=== PATIENT | male | born 1980 | race Asian ===

== ENCOUNTER 2019-01-16 11:50 | Day surgery (SDC) | payer OTHER ==
[~2019-01-16] VITALS: Ht 165.1 cm; Wt 71.6 kg
[2019-01-16] MEDS ORDERED: OMEP20CA16 PO (13:18)
[2019-01-16 13:20] VITALS: Ht 165.1 cm; Wt 71.6 kg
[2019-01-16 13:22] VITALS: BP 107/68; PULSE 66; RESP 18
[2019-01-16] MEDS ORDERED: LIDOCAINE 4% SOLUTION 50 ML BTL ONE (13:39)
[2019-01-16] MEDS ORDERED: MIDAZOLAM 1 MG/ML 2 ML INJ ONE ×2 (14:47)
[2019-01-16] MEDS ORDERED: FENTAnyl 50 MCG/ML VIAL ONE (14:47)
== END 2019-01-16 15:16 | disposition home or self-care (01) ==
LOC: GIL 11:50
PROVIDERS: ATTEND Internal Medicine
DX: K29.50 Unspecified chronic gastritis without bleeding (principal)
CPT/HCPCS: 43239; 88305; 88312; J2250; J3010